=== PATIENT | female | born 1995 | race Caucasian/White ===

== ENCOUNTER 2016-06-16 11:48 | Emergency (ER) | payer OTHER ==
[~2016-06-16] VITALS: Ht 165.1 cm; Wt 99.5 kg
[2016-06-16 11:50] VITALS: BP 117/78
--- NOTE | 2016-06-16 13:06 | NUR ---
PT TO BED 4
--- NOTE | 2016-06-16 13:11 | NUR ---
20/F BIB FAMILY C/O LOWER ABDOMINAL PAIN x 10 DAYS. DENIES N/V/D; SKIN IS PINK/WARM/DRY; AAOX4 WITH EVEN AND STEADY GAIT; LUNGS CLEAR BL; HR EVEN AND REGULAR; PT DENIES ANY FEVER, CP, SOB, OR COUGH AT THIS TIME; PATIENT STATES PAIN OF 8/10 AT THIS TIME; VSS; PATIENT POSITIONED FOR COMFORT; HOB ELEVATED; BEDRAILS UP X2; BED DOWN. ER MD MADE AWARE OF PT STATUS.
--- NOTE | 2016-06-16 13:32 | NUR ---
DR SCHULTZ AT BEDSIDE ASSESSING THE PT
[2016-06-16 13:42] VITALS: BP 124/76
--- NOTE | 2016-06-16 13:42 | NUR ---
Patient discharged with v/s stable. Written and verbal after care instructions given and explained. Patient verbalized understanding. Ambulatory with steady gait. All questions addressed prior to discharge. Advised to follow up with PMD.
== END 2016-06-16 13:42 | disposition home or self-care (01) ==
LOC: MED 11:48
DX: O26.891 Other specified pregnancy related conditions, first trimester (principal); R10.84 Generalized abdominal pain; Z3A.01 Less than 8 weeks gestation of pregnancy

== ENCOUNTER 2018-04-15 18:32 | Emergency (ER) | payer OTHER ==
[~2018-04-15] VITALS: Ht 165.1 cm; Wt 102.7 kg
[2018-04-15 18:40] VITALS: BP 135/97
[2018-04-15 20:16] LABS: BASOPHILS % (AUTO) 0.3 % (0.0-2.0); EOSINOPHILS # (AUTO) 0.1 K/uL (0-0.4); EOSINOPHILS % (AUTO) 1.1 % (0.0-4.0); HEMATOCRIT 39.7 % (36-48); HEMOGLOBIN 13.1 g/dL (12.0-16.0); LYMPHOCYTES # (AUTO) 2.2 K/uL (2.5-16.5); LYMPHOCYTES % (AUTO) 27.2 % (20.5-51.1); MEAN CORPUSCULAR HEMOGLOBIN 28 pg (27-31); MEAN CORPUSCULAR HGB CONC 33 g/dL (33-37); MEAN CORPUSCULAR VOLUME 83.5 fL (80-94); MONOCYTES # (AUTO) 0.7 K/uL (0.8-1.0); MONOCYTES % (AUTO) 8.6 % (1.7-9.3); NEUTROPHILS # (AUTO) 5.1 K/uL (1.8-7.7); NEUTROPHILS % (AUTO) 62.8 % (42.2-75.2); PLATELET COUNT (AUTO) 317 K/uL (140-450); RED BLOOD CELL COUNT(AUTO) 4.76 MIL/uL (4.20-5.40); RED CELL DISTRIBUTION WIDTH 13.6 % (11.6-13.7); WHITE BLOOD COUNT (AUTO) 8.2 K/uL (4.8-10.8)
[2018-04-15 20:17] LABS: APPEARANCE,URINE CLEAR (CLEAR); BILIRUBIN,URINE NEGATIVE (NEGATIVE); BLOOD, URINE 3+ (NEGATIVE); COLOR,URINE YELLOW (YELLOW); LEUKOCYTE ESTERASE ,URINE TRACE (NEGATIVE); NITRITE, URINE NEGATIVE (NEGATIVE); UGLUCOSE NEGATIVE (NEGATIVE)
[2018-04-15 20:22] LABS: RBC,URINE 50-80 /HPF (0-5); WBC,URINE 0-5 (RARE) /HPF (0-5)
[2018-04-15 20:23] LABS: URINE AMORPHOUS URATE 1+ /HPF (None Seen)
--- NOTE | 2018-04-15 20:31 | NUR ---
PT TO ER BED 5
--- NOTE | 2018-04-15 20:43 | NUR ---
22/F PRESENTS TO ED WITH FAMILY/FRIEND, C/O VAGINAL SPOTTING/MINIMAL BLEEDING, X1 DAY. PT IS 5 WEEKS . A1. PT DENIES FEVER, N/V/D, DYSURIA. PT REPORTS MILD SUPRAPUBIC CRAMPING THROUGHOUT . PT AOX4, GCS 15, RR EVEN AND UNLABORED. HX PRE-DM, NO RX.
[2018-04-15 22:34] VITALS: BP 116/71
== END 2018-04-15 22:34 | disposition home or self-care (01) ==
LOC: MED 18:32
DX: O20.0 Threatened abortion (principal); Z3A.01 Less than 8 weeks gestation of pregnancy
CPT/HCPCS: 36415; 76817; 81001; 84702; 85025; 86900; 86901; 87086; 99284; Q0092